=== PATIENT | female | born 1960 | race Two or more races ===

== ENCOUNTER → 2023-08-18 06:35 | Outpatient (CLI) | payer OTHER ==
[2023-08-18 08:11] LABS: HEMATOCRIT 36.5 % (36.0-45.00); HEMOGLOBIN 12.2 g/dL (12.0-15.00); MEAN CELL VOLUME 90.4 fL (80.00-100.00); MEAN CORPUSCULAR HEMOGLOBIN 30.2 pg (27.00-32.0); MEAN CORPUSCULAR HGB CONC 33.4 g/dl (32.0-36.0); PLATELET COUNT 197 K/uL (150-450); RED BLOOD COUNT 4.03 M/uL (4.00-6.00); RED CELL DISTRIBUTION WIDTH 15.1 % (11.5-14.5)
[2023-08-18 08:27] LABS: ALBUMIN 3.8 gm/dL (3.4-5.0); BILIRUBIN TOTAL 0.31 mg/dL (0.3-1.2); CREATININE SERUM 0.6 mg/dL (0.55-1.02); GFR 100.64; GLOBULINA 3.9 G/DL (2.4-3.5); POTASSIUM 3.93 mEq/L (3.5-5.1); T4 FREE 1.01 NG/ML (0.76-1.46); TOTAL PROTEIN 7.7 gm/dL (6.4-8.2); TSH 3.06 uIU/mL (0.358-3.74)
[2023-08-18 12:16] LABS: FOLIC ACID 16.33 ng/ml (4.78-20)
== END | disposition home or self-care (01) ==
LOC: LAB 06:35
PROVIDERS: ATTEND Internal Medicine Hematology & Oncology
DX: D50.8 Other iron deficiency anemias (principal); I10 Essential (primary) hypertension; D51.3 Other dietary vitamin B12 deficiency anemia; R97.0 Elevated carcinoembryonic antigen [CEA]; C18.0 Malignant neoplasm of cecum; C56.9 Malignant neoplasm of unspecified ovary; C25.9 Malignant neoplasm of pancreas, unspecified; C50.911 Malignant neoplasm of unspecified site of right female breast; E03.8 Other specified hypothyroidism

== ENCOUNTER 2023-11-09 06:46 | Outpatient (CLI) | payer OTHER ==
[2023-11-11 14:07] LABS: PARIETAL CELL ANTIBODIES 39.4 Units (0.0-20.0)
== END 2023-11-09 06:47 | disposition home or self-care (01) ==
LOC: LAB 06:46
PROVIDERS: ATTEND Internal Medicine Hematology & Oncology
DX: D51.1 Vitamin B12 deficiency anemia due to selective vitamin B12 malabsorption with proteinuria (principal); D51.0 Vitamin B12 deficiency anemia due to intrinsic factor deficiency; E06.3 Autoimmune thyroiditis

== ENCOUNTER 2023-11-16 11:42 | Outpatient (CLI) | payer OTHER | END 2023-11-16 11:44 | disposition home or self-care (01) | LOC: MAMO-SONO 11:42 | DX: Z12.31 Encounter for screening mammogram for malignant neoplasm of breast (principal); Z12.39 Encounter for other screening for malignant neoplasm of breast ==

== ENCOUNTER 2024-01-14 07:17 | Outpatient (CLI) | payer OTHER ==
[2024-01-14 09:10] LABS: URINE APPEARANCE Clear; URINE BILIRRUBIN Negative (NEGATIVE); URINE BLOOD Negative; URINE COLOR Yellow; URINE GLUCOSE Negative (NEGATIVE); URINE LEUKOCYTE Negative; URINE NITRATE Negative; URINE PROTEIN Negative (NEGATIVE); URINE UROBILINOGEN 0.2 E.U./dl
[2024-01-14 09:13] LABS: URINE RBC 4.8 uL (0.0-20.8); URINE WBC 5.6 uL (0.0-23.2)
[2024-01-14 09:19] LABS: URINE BACTERIA 1.2 uL (0.0-1933)
[2024-01-14 09:35] LABS: HEMATOCRIT 37.1 % (36.0-45.00); HEMOGLOBIN 12.1 g/dL (12.0-15.00); MEAN CELL VOLUME 89.7 fL (80.00-100.00); MEAN CORPUSCULAR HEMOGLOBIN 29.3 pg (27.00-32.0); MEAN CORPUSCULAR HGB CONC 32.6 g/dl (32.0-36.0); PLATELET COUNT 199 K/uL (150-450); RED BLOOD COUNT 4.14 M/uL (4.00-6.00)
[2024-01-14 09:39] LABS: ERYTHROCYTE SEDIMENTATION RATE 18 mm/hr
[2024-01-14 10:52] LABS: ANION GAP 4 (10.0-20.0); BLOOD UREA NITROGEN 15 mg/dL (7-18); BUN CREA RATIO 25 (7.0-25.0); CALCIUM 9.4 mg/dL (8.5-10.1); CARBON DIOXIDE 34 mEq/L (21-32); CHLORIDE 108 mmol/L (98-107); CHOL HDL RATIO 2.9 (0-5.0); CHOLESTEROL 209 mg/dL (0-200); CREATININE SERUM 0.61 mg/dL (0.55-1.02); FREE TRIODOTIRONINE 2.61 pg/ml (2.18-3.98); GFR 98.74; GLUCOSE FASTING 92 mg/dL (65-100); HDL 71 mg/dl (40-60); LDL 126 mg/dl (0-130); OSMOLALITY SERUM 284 MOSM/KG (275-295); POTASSIUM 4.22 mEq/L (3.5-5.1); SODIUM 142 mmol/L (136-145); T4 TOTAL 7.89 UG/DL (4.8-13.9); TRIGLYCERIDES 61 mg/dL (0-150); VLDL 12 (0-39)
[2024-01-14 10:56] LABS: C-REACTIVE PROTEIN < 0.29 MG/DL (0.00-0.29)
== END 2024-01-14 07:31 | disposition home or self-care (01) ==
LOC: LAB 07:17
PROVIDERS: ATTEND Internal Medicine
DX: M81.8 Other osteoporosis without current pathological fracture (principal); N63.10 Unspecified lump in the right breast, unspecified quadrant; E03.9 Hypothyroidism, unspecified; R73.9 Hyperglycemia, unspecified; E78.9 Disorder of lipoprotein metabolism, unspecified; N39.0 Urinary tract infection, site not specified; R10.9 Unspecified abdominal pain; L80 Vitiligo; Z12.11 Encounter for screening for malignant neoplasm of colon

== ENCOUNTER 2024-03-27 11:20 | Emergency (ER) | payer OTHER ==
[~2024-03-27] VITALS: Ht 157.5 cm; Wt 59.0 kg
[2024-03-27] MEDS ORDERED: VITAMIN (12:24)
[2024-03-27] MEDS ORDERED: FAMOtidine 10 MG/ML (4ML VIAL) IV STA (13:38)
[2024-03-27] MEDS ORDERED: FAMOTIDINE/PF 20 MG/2 ML VIAL ONE (13:44)
[2024-03-27] MEDS ORDERED: HYOSCYAMINE SULFATE 0.125 MG TAB.SUBL ONE (13:44)
[2024-03-27] MEDS ORDERED: HYOSCYAMINE SULFATE 0.125 MG TAB.SUBL SL ONE (13:45)
[2024-03-27 14:03] LABS: HEMATOCRIT 36.5 % (36.0-45.00); HEMOGLOBIN 12.3 g/dL (12.0-15.00); MEAN CELL VOLUME 89.9 fL (80.00-100.00); MEAN CORPUSCULAR HEMOGLOBIN 30.4 pg (27.00-32.0); MEAN CORPUSCULAR HGB CONC 33.8 g/dl (32.0-36.0); PLATELET COUNT 188 K/uL (150-450); RED BLOOD COUNT 4.06 M/uL (4.00-6.00); RED CELL DISTRIBUTION WIDTH 14.9 % (11.5-14.5)
[2024-03-27 14:58] LABS: CALCIUM 9.2 mg/dL (8.5-10.1); CREATININE SERUM 0.63 mg/dL (0.55-1.02); GFR 95.14; POTASSIUM 3.76 mEq/L (3.5-5.1)
[2024-03-27 15:03] LABS: URINE APPEARANCE Clear; URINE BILIRRUBIN Negative (NEGATIVE); URINE BLOOD Negative; URINE COLOR Yellow; URINE GLUCOSE Negative (NEGATIVE); URINE LEUKOCYTE Small; URINE NITRATE Negative; URINE PROTEIN Trace (NEGATIVE); URINE UROBILINOGEN 0.2 E.U./dl
[2024-03-27 15:06] LABS: URINE BACTERIA 61.7 uL (0.0-1933); URINE EPITHELIAL CELLS 3.8 uL (0.0-38.8); URINE RBC 5.4 uL (0.0-20.8); URINE WBC 12.5 uL (0.0-23.2)
== END 2024-03-27 16:14 | disposition home or self-care (01) ==
LOC: ER 11:20
PROVIDERS: General Practice
DX: R10.9 Unspecified abdominal pain (principal); E03.8 Other specified hypothyroidism